=== PATIENT | female | born 1975 | race Caucasian/White ===

== ENCOUNTER 2017-05-23 07:08 | Observation (INO) | payer BC, OTHER ==
[~2017-05-23] VITALS: Ht 170.2 cm; Wt 70.3 kg
[~2017-05-23 07:08] MED LIST: ALPR2TAB2 PO; CYCL-181 PO; THYR60TA PO; VALA1TAB28 PO
[2017-05-23] MEDS ORDERED: NALBUPHINE HCL 10 MG/1ml INJECTION IM ONE (09:45)
[2017-05-23] MEDS ORDERED: ONDANSETRON ODT 4 MG TAB PO ONE (09:45)
[2017-05-23 10:06] VITALS: BP 111/65
[2017-05-23] MEDS ORDERED: HYDROcodone-ACET 10/325MG TAB ONE (11:58)
[2017-05-23] MEDS ORDERED: HYDROcodone-ACET 10/325MG TAB PO ONE (12:15)
== END 2017-05-23 12:08 | disposition home or self-care (01) | DRG 552 ==
LOC: ER 07:08 → EDBD 07:08 → OVERFLOW 11:19 → ER 12:08
PROVIDERS: ADMIT Emergency Medicine; ATTEND Emergency Medicine
DX: S32.039A Unspecified fracture of third lumbar vertebra, initial encounter for closed fracture (principal); Z90.710 Acquired absence of both cervix and uterus; F41.9 Anxiety disorder, unspecified; S32.049A Unspecified fracture of fourth lumbar vertebra, initial encounter for closed fracture; W10.9XXA Fall (on) (from) unspecified stairs and steps, initial encounter; Y93.89 Activity, other specified; Y92.89 Other specified places as the place of occurrence of the external cause; Y99.8 Other external cause status
CPT/HCPCS: 72110; 72131; 74176; 96372; 99285; G0378; J2300; Q0162

== ENCOUNTER 2017-12-20 16:42 | Emergency (ER) | payer BC ==
[~2017-12-20] VITALS: Ht 172.7 cm; Wt 72.6 kg
[2017-12-20 17:36] LABS: Hematocrit 40.3 % (36.0-46.0); Hemoglobin 13.4 g/dL (12.2-16.2); Mean Corpuscular Hemoglobin 30.7 pg (28.0-32.0); Mean Corpuscular Hgb Conc. 33.3 g/dL (32.0-36.0); Mean Corpuscular Volume 92.2 fL (80.0-100.0); Platelet Count (auto) 354 10^3/uL (140-450); Red Blood Cells 4.37 10^6/uL (4.0-5.20); Red Cell Distribution Width 13.1 % (11.8-14.3); White Blood Cell 9.9 10^3/uL (4.4-10.8)
[2017-12-20 17:56] LABS: BUN/Creatinine Ratio 7.4; Calcium 8.9 mg/dL (8.5-10.1); Potassium 3.7 mmol/L (3.5-5.1)
[2017-12-20 17:59] LABS: Band Neutrophils % (manual) 0; Basophils % (manual) 0 (0.0-2.0); Bilirubin, Total 0.4 mg/dL (0.2-1.0); Blast Cells 0; Metamyelocytes % 0; Myelocytes % 0; Promyelocytes % 0; Reactive Lymphocytes 0; Total Protein 7.8 g/dL (6.4-8.2)
[2017-12-20 18:07] LABS: Eosinophils % (manual) 19 (0-7); Lymphocytes % (manual) 31 (10.0-50.0); Monocytes % (manual) 7 (0-12)
[2017-12-20 18:41] LABS: Urine WBC None Seen /hpf (0 - 5)
[2017-12-20 18:44] LABS: Urine Bacteria NONE SEEN /hpf (None Seen); Urine Blood Negative /uL (Negative); Urine Specific Gravity 1.003 (1.001-1.035)
[2017-12-21 00:52] VITALS: BP 130/82
[2017-12-21] MEDS ORDERED: LACTULOSE 20Gm/30ML SOLN PO ONE (01:30)
[2017-12-21] MEDS ORDERED: MAGNESIUM CITRATE SOLUTION 300 ML BTL PO ONE (01:30)
== END 2017-12-21 02:39 | disposition home or self-care (01) ==
LOC: ER 16:49
DX: K59.00 Constipation, unspecified (principal); F41.9 Anxiety disorder, unspecified; Z88.1 Allergy status to other antibiotic agents; Z88.6 Allergy status to analgesic agent
CPT/HCPCS: 36415; 74176; 80053; 81001; 81025; 85007; 85027

== ENCOUNTER 2018-03-17 16:53 | Emergency (ER) | payer BC ==
[~2018-03-17] VITALS: Ht 170.2 cm; Wt 72.6 kg
[2018-03-17 17:15] VITALS: BP 132/69
[2018-03-17] MEDS ORDERED: IBUPROFEN 800 MG TAB PO ONE (17:45)
[2018-03-17] MEDS ORDERED: LIDOCAINE 1% HCL (LOCAL ANESTH.) INJ 20ML MDV ONE (19:07)
[2018-03-17] MEDS ORDERED: LACTULOSE 20Gm/30ML SOLN ONE (19:07)
[2018-03-17] MEDS ORDERED: ONDANSETRON HCL 4 MG/2 ML VIAL IM ONE (20:00)
[2018-03-17] MEDS ORDERED: MEPERIDINE HCL (50 MG/ML) 1 ML VIAL IM ONE (20:00)
== END 2018-03-17 20:05 | disposition home or self-care (01) ==
LOC: ER 16:53 → MERGE 16:53 → ER 20:05
DX: K59.00 Constipation, unspecified (principal); E03.9 Hypothyroidism, unspecified; M25.559 Pain in unspecified hip; G89.29 Other chronic pain; M54.9 Dorsalgia, unspecified; Z88.0 Allergy status to penicillin; Z88.8 Allergy status to other drugs, medicaments and biological substances; Z88.5 Allergy status to narcotic agent; Z90.49 Acquired absence of other specified parts of digestive tract; Z90.710 Acquired absence of both cervix and uterus
CPT/HCPCS: 72100; 74176; 99284; J2001

== ENCOUNTER 2018-10-22 10:45 | Emergency (ER) | payer BC ==
[~2018-10-22] VITALS: Ht 170.2 cm; Wt 74.8 kg
[2018-10-22 11:57] VITALS: BP 121/62
[2018-10-22] MEDS ORDERED: cefTRIAXone SOD 1,000 MG VL IM ONE (12:00)
== END 2018-10-22 12:45 | disposition home or self-care (01) ==
LOC: ER 10:59
DX: J20.9 Acute bronchitis, unspecified (principal); J03.90 Acute tonsillitis, unspecified; E07.9 Disorder of thyroid, unspecified; Z90.49 Acquired absence of other specified parts of digestive tract
CPT/HCPCS: 71046; 96372; 99283; J0696

== ENCOUNTER 2019-05-21 10:49 | Emergency (ER) | payer SELFPAY ==
[~2019-05-21] VITALS: Ht 170.2 cm; Wt 72.6 kg
[2019-05-21 10:56] VITALS: BP 144/72
[2019-05-21 12:07] LABS: Urine Bacteria FEW /hpf (None Seen); Urine Blood TRACE /uL (Negative); Urine Specific Gravity 1.006 (1.001-1.035); Urine WBC 62 /hpf (0 - 5)
== END 2019-05-21 11:48 | disposition home or self-care (01) ==
LOC: ER 10:49
DX: N39.0 Urinary tract infection, site not specified (principal); Z88.1 Allergy status to other antibiotic agents; Z88.8 Allergy status to other drugs, medicaments and biological substances
CPT/HCPCS: 81001

== ENCOUNTER 2021-12-31 10:16 | Emergency (ER) | payer BC, OTHER ==
[~2021-12-31] VITALS: Ht 172.7 cm; Wt 81.6 kg
[~2021-12-31 10:16] MED LIST changes: +VALA1TAB PO; -VALA1TAB28 PO
[2021-12-31 10:28] VITALS: BP 157/85
[2021-12-31] MEDS ORDERED: ALPR2TAB2 PO (12:44)
== END 2021-12-31 13:01 | disposition home or self-care (01) ==
LOC: ER 10:16
DX: F41.9 Anxiety disorder, unspecified (principal); Z76.0 Encounter for issue of repeat prescription

== ENCOUNTER 2022-11-25 14:15 | Emergency (ER) | payer MEDICAID, OTHER ==
[~2022-11-25] VITALS: Ht 170.2 cm; Wt 92.0 kg
[2022-11-25 17:29] VITALS: BP 129/78
[2022-11-25] MEDS ORDERED: hydrOXYzine 25 MG TAB or CAP PO ONE (17:30)
[2022-11-25] MEDS ORDERED: DexAMETHasone SOD PHOS 10MG/1ML VIAL INJ IM ONE (17:30)
[2022-11-25] MEDS ORDERED: HYDR-3682 PO (17:47)
[2022-11-25] MEDS ORDERED: LORA-483 GT (17:47)
== END 2022-11-25 17:58 | disposition home or self-care (01) ==
LOC: ER 14:15
DX: T78.40XA Allergy, unspecified, initial encounter (principal); E03.9 Hypothyroidism, unspecified; Z90.49 Acquired absence of other specified parts of digestive tract; Z79.899 Other long term (current) drug therapy; Z88.1 Allergy status to other antibiotic agents; Z88.8 Allergy status to other drugs, medicaments and biological substances; Y92.89 Other specified places as the place of occurrence of the external cause
CPT/HCPCS: 96372; 99283; J1100

== ENCOUNTER 2023-06-29 11:08 | Emergency (ER) | payer MEDICAID ==
[~2023-06-29] VITALS: Ht 172.7 cm; Wt 89.0 kg
[~2023-06-29 11:08] MED LIST changes: +HYDR-3682 PO; +LORA-483 GT
[2023-06-29 11:57] VITALS: BP 135/87; PULSE 89; RESP 19; TEMP 98.1; O2SAT 99
[2023-06-29] MEDS ORDERED: DexAMETHasone SOD PHOS 10MG/1ML VIAL INJ IM ONE (12:00)
[2023-06-29] MEDS ORDERED: cefTRIAXone SOD 1,000 MG VL IM ONE (12:15)
[2023-06-29] MEDS ORDERED: [UNRECOGNIZED DRUG - CODE] EX (12:45)
[2023-06-29] MEDS ORDERED: METH4PAK PO (12:45)
[2023-06-29] MEDS ORDERED: HYDR-3682 PO (12:58)
[2023-06-29] MEDS ORDERED: hydrOXYzine 25 MG TAB or CAP PO ONE (13:00)
== END 2023-06-29 12:59 | disposition home or self-care (01) ==
LOC: ER 11:08
DX: T78.40XA Allergy, unspecified, initial encounter (principal); L70.9 Acne, unspecified; F41.9 Anxiety disorder, unspecified; Z90.49 Acquired absence of other specified parts of digestive tract; Z79.899 Other long term (current) drug therapy; Z88.1 Allergy status to other antibiotic agents; Z88.8 Allergy status to other drugs, medicaments and biological substances; Z88.6 Allergy status to analgesic agent; X58.XXXA Exposure to other specified factors, initial encounter
CPT/HCPCS: 96372; 99284; J0696; J1100